=== PATIENT | female | born 1965 ===

== ENCOUNTER 2024-09-19 11:30 | Day surgery (SDC) | payer OTHER ==
[2024-09-19] MEDS ORDERED: CEFAZOLIN SODIUM 1,000 MG VIAL IV ONE (16:30)
[2024-09-19] MEDS ORDERED: POVIDONE-IODINE 118 ML BOTT TOP ONE (16:30)
== END 2024-09-19 21:05 | disposition home or self-care (01) ==
LOC: CIR.AMB 11:30
PROVIDERS: ATTEND Obstetrics & Gynecology
DX: N84.2 Polyp of vagina (principal)